=== PATIENT | female | born 1985 | race Caucasian/White ===

== ENCOUNTER 2020-10-19 20:51 | Emergency (ER) | payer OTHER ==
[~2020-10-19] VITALS: Ht 157.5 cm; Wt 63.5 kg
[2020-10-19] MEDS ORDERED: SULF1TAB48 PO (21:28)
[2020-10-19] MEDS ORDERED: SULFAMETH/TRIMETH 800/160 MG TABLET PO ONE (21:30)
[2020-10-19] MEDS ORDERED: CLINDAMYCIN HCL 150 MG CAPSULE PO ONE (21:30)
[2020-10-19] MEDS ORDERED: SULFAMETH/TRIMETH 800/160 MG TABLET ONE (21:31)
--- NOTE | 2020-10-19 22:10 | NUR ---
DR Amador into re eval patient to make sure patient had no reactions with medication given in ER. No reaction noted. Denies SOB, swelling of tongue. No hives noted.
[2020-10-19 22:13] VITALS: BP 122/77
--- NOTE | 2020-10-19 22:13 | NUR ---
Patient discharged to home in stable condition. Written and verbal after care instructions given. Patient verbalizes understanding of instructions. Stressed follow up or return to ER for worsening s/s.
== END 2020-10-19 22:14 | disposition home or self-care (01) ==
LOC: ER 21:10
DX: S61.231A Puncture wound without foreign body of left index finger without damage to nail, initial encounter (principal); W26.8XXA Contact with other sharp object(s), not elsewhere classified, initial encounter; Y93.F9 Activity, other caregiving; Y92.239 Unspecified place in hospital as the place of occurrence of the external cause; Y99.0 Civilian activity done for income or pay
CPT/HCPCS: A4663